=== PATIENT | female | born 1955 | race African-American/Black ===

== ENCOUNTER 2016-12-19 00:04 | Emergency (ER) | payer OTHER ==
[~2016-12-19] VITALS: Ht 162.6 cm; Wt 103.1 kg
[2016-12-19 00:10] VITALS: TEMP 36.7; Ht 162.6 cm; Wt 103.1 kg
[2016-12-19] MEDS ORDERED: SODIUM CHLORIDE 0.9% 1000ML 1,000 ML IV STA (00:10)
[2016-12-19] MEDS ORDERED: LORAZEPAM 2 MG/ML 1 ML VIAL IV STA (00:10)
[2016-12-19] MEDS ORDERED: LABETALOL HCL IV 5 MG/ML 20ML IV STA ×2 (00:10→01:06)
--- NOTE | 2016-12-19 00:16 | EMERGENCY ROOM VISIT NOTE ---
History Report prepared by Baron: Joelle Richardson Under the Supervision of: Dr. Patricio Marie M.D. First contact with patient: 00:06 Stated Complaint: UNABLE TO WALK History of Present Illness The patient is a 61 year old female who presents to the Emergency Room with complaints of persistent dizziness that began prior to arrival. The patient's son states that the patient has a history of diabetes noting that she takes Metformin. He denies the patient being on any insulin. The patient states that she became dizzy this evening and then began vomiting. She states that she fell due to her dizziness. The patient denies any head trauma or headache. She states that she has been feeling weak. The patient's son states that the patient has complained of itchiness to her hands and feet. The patient denies any urinary symptoms or tobacco use. She denies any history of heart disease. Nursing staff notes that the patient recently ran out of her blood pressure medications and states that since she is new to the area she does not have a PCP and has not had her medication refilled. Source of History: patient, family (son), nursing staff Onset: prior to arrival Position: other (global) Quality: other (dizziness) Timing: other (persistent) Associated Symptoms: + vomiting, + weakness, No headache, No urinary symptoms Note: Associated Symptoms: itchiness to hands and feet Review of Systems See HPI for pertinent positives & negatives. A total of 10 systems reviewed and were otherwise negative. Past Medical & Surgical Medical Problems: (1) Diabetes (2) Hypertension Family History No pertinent family history stated. Social History Marital Status: Housing Status: lives with family Occupation Status: unemployed Current/Historical Medications Scheduled Diltiazem Hcl Coated Beads (Cardizem Cd), 1 CAP PO DAILY Metformin Hcl (Glucophage), 1,500 MG PO DAILY [Unknown B/P Med], 1 TAB PO DAILY [Unknown Diabetic Med], 1 TAB PO DAILY Scheduled PRN Meclizine HCl (Meclizine HCl), 1 TAB PO TID PRN for Dizziness or Vertigo Allergies Coded Allergies: No Known Allergies (Unverified , 12/19/16) Physical Exam Vital Signs Date Time Temp Pulse Resp B/P (MAP) Pulse Ox O2 Delivery O2 Flow Rate FiO2 12/19/16 01:23 76 20 165/83 96 Room Air 12/19/16 01:19 74 16 215/96 98 Room Air 12/19/16 01:09 77 17 96 12/19/16 01:07 185/96 12/19/16 00:49 79 16 98 12/19/16 00:47 167/77 12/19/16 00:29 81 20 205/79 96 Room Air 12/19/16 00:10 36.7 77 16 226/91 96 Room Air Physical Exam GENERAL: Patient is anxious appearing and in no acute distress. HEENT: No acute trauma, normocephalic atraumatic, mucous membranes moist, no nasal congestion, no scleral icterus. NECK: No stridor, no adenopathy, no meningismus, trachea is midline. LUNGS: No dyspnea. Clear to auscultation and equal bilaterally. No wheeze, no rhonchi. HEART: Regular rate and rhythm. No murmurs, rubs, gallops appreciated. ABDOMEN: Soft, nontender, bowel sounds positive, no masses appreciated, no peritonitis. BACK: No midline tenderness, no CVA tenderness EXTREMITIES: Normal motion all extremities, no cyanosis, no edema. NEUROLOGIC: Alert and oriented, no acute motor or sensory deficits, no focal weakness, cranial nerves grossly intact. SKIN: No rash, no jaundice, no diaphoresis. Medical Decision & Procedures ER Provider Diagnostic Interpretation: X ray results are stated below per my interpretation: Chest: 1 view: No infiltrate, no effusion, normal cardiac border. Radiology results and stated below per my review and radiologist interpretation: CT HEAD: NO ICH, mass effect or edema. No evidence of acute cortical stroke. Visualized sinuses and mastoid air cells are clear. Radiologist: Roxane Chavez MD Study ready at 0104 and initial results transmitted at 0124 Laboratory Results 12/19/16 00:15 Red Blood Count 5.27, Mean Corpuscular Volume 73.6, Mean Corpuscular Hemoglobin 24.9, Mean Corpuscular Hemoglobin Concent 33.8, Mean Platelet Volume 10.6, Neutrophils (%) (Auto) 51.1, Lymphocytes (%) (Auto) 38.3, Monocytes (%) (Auto) 8.4, Eosinophils (%) (Auto) 1.6, Basophils (%) (Auto) 0.4, Neutrophils # (Auto) 4.14, Lymphocytes # (Auto) 3.11, Monocytes # (Auto) 0.68, Eosinophils # (Auto) 0.13, Basophils # (Auto) 0.03 12/19/16 00:15 Test 12/19/16 00:15 White Blood Count 8.11 K/uL (4.8-10.8) Red Blood Count 5.27 M/uL (4.2-5.4) Hemoglobin 13.1 g/dL (12.0-16.0) Hematocrit 38.8 % (37-47) Mean Corpuscular Volume 73.6 fL (80-100) Mean Corpuscular Hemoglobin 24.9 pg (25-34) Mean Corpuscular Hemoglobin Concent 33.8 g/dl (32-36) Platelet Count 280 K/uL (130-400) Mean Platelet Volume 10.6 fL (7.4-10.4) Neutrophils (%) (Auto) 51.1 % Lymphocytes (%) (Auto) 38.3 % Monocytes (%) (Auto) 8.4 % Eosinophils (%) (Auto) 1.6 % Basophils (%) (Auto) 0.4 % Neutrophils # (Auto) 4.14 K/uL (1.4-6.5) Lymphocytes # (Auto) 3.11 K/uL (1.2-3.4) Monocytes # (Auto) 0.68 K/uL (0.11-0.59) Eosinophils # (Auto) 0.13 K/uL (0-0.5) Basophils # (Auto) 0.03 K/uL (0-0.2) RDW Standard Deviation 37.2 fL (36.4-46.3) RDW Coefficient of Variation 13.9 % (11.5-14.5) Immature Granulocyte % (Auto) 0.2 % Immature Granulocyte # (Auto) 0.02 K/uL (0.00-0.02) Red Blood Cell Morphology Unremarkable Prothrombin Time 10.5 SECONDS (9.0-12.0) Prothromb Time International Ratio 1.0 (0.9-1.1) Activated Partial Thromboplast Time 22.9 SECONDS (21.0-31.0) Partial Thromboplastin Ratio 0.9 Anion Gap 5.0 mmol/L (3-11) Est Creatinine Clear Calc Drug Dose 78.6 ml/min Estimated GFR () 81.6 Estimated GFR (Non- 70.4 BUN/Creatinine Ratio 19.8 (10-20) Calcium Level 9.3 mg/dl (8.5-10.1) Phosphorus Level 2.8 mg/dl (2.5-4.9) Magnesium Level 1.9 mg/dl (1.8-2.4) Total Bilirubin 0.2 mg/dl (0.2-1) Direct Bilirubin < 0.1 mg/dl (0-0.2) Aspartate Amino Transf (AST/SGOT) 10 U/L (15-37) Alanine Aminotransferase (ALT/SGPT) 18 U/L (12-78) Alkaline Phosphatase 91 U/L (45-117) Total Creatine Kinase 85 U/L (26-192) Creatine Kinase MB 0.6 ng/ml (0.5-3.6) Creatine Kinase MB Ratio 0.7 (0-3.0) Troponin I < 0.015 ng/ml (0-0.045) Total Protein 8.3 gm/dl (6.4-8.2) Albumin 3.6 gm/dl (3.4-5.0) Lipase 245 U/L (73-393) Laboratory results as reviewed by me. Medications Administered Medications (Trade) Dose Ordered Sig/Haley Route Start Time Stop Time Status Last Admin Dose Admin Labetalol HCl (Normodyne IV) 10 mg NOW STAT IV 12/19/16 00:10 12/19/16 00:11 DC 12/19/16 00:27 10 MG Lorazepam (Ativan Inj) 1 mg NOW STAT IV 12/19/16 00:10 12/19/16 00:11 DC 12/19/16 00:25 1 MG Sodium Chloride 1,000 ml @ 999 mls/hr Q1H1M STAT IV 12/19/16 00:10 12/19/16 01:10 DC 12/19/16 00:25 999 MLS/HR Labetalol HCl (Normodyne IV) 10 mg NOW STAT IV 12/19/16 01:06 12/19/16 01:07 DC 12/19/16 01:18 10 MG ECG Indication: other (dizziness) Rate (beats per minute): 74 Rhythm: sinus rhythm Findings: nonspecific-ST abn (Anterior), no acute ischemic change, no ectopy Comparison ECG Date: no prior available ED Course 0007: The patient was evaluated in room B12B. A complete history and physical exam was performed. 0010: Ordered Sodium Chloride 1000 ml @ 999 mls/hr IV, Ativan Inj 1 mg IV, Labetalol HCl 10 mg IV. 0106: Ordered Labetalol HCl 10 mg IV. 0143: I reevaluated the patient and she is resting comfortably. She states that she does not have a primary care physician. I discussed the exam findings with her and I discussed the treatment plan. She verbalized complete understanding and agreement. She is ready to go home. 0147: Case Management is going to touch base with the patient regarding setting the patient up with a PCP. 0149: Ordered Diltazem HCl 120 mg PO. Medical Decision Differential: Sepsis, Infectious (UTI/Pneumonia/Meningitis/etc), Metabolic/ Electrolyte Abnormality, Cardiac, Hepatic, Endocrine, Toxicologic, Neurologic, amongst other pathologies entertained. Medication Reconciliation: I attest that I have personally reviewed the patient 's current medication list. Blood pressure screening: Patient was found to have an elevated blood pressure and was referred to their primary doctor for recheck and further treatment. 61 yr old female from [place] of town arrives with acute dizziness and generalized weakness. Completely resolved with getting BP under control and calming her down some. No neuro defictis and CT head is negative. Labs unremarkable and patient without chest pain. No evidence of PE nor dissection. No evidence of acute infectious cause. She does not exhibit evidence of meningitis. EKG is not consistent with ACS and Trop is negative. She feels much better and wishes to go home. She has no idea what blood pressure med she previous was on but clearly has not had it in some time. BP under control with two doses of Labetalol IV. HR in 70s thus will start Cardizem at lower end dose. Given enough in Rx for month as unsure when she may head home to [place]. The patient is well hydrated, happy, breathing comfortably and in no distress. She is not septic and is stable at discharge. Son and her happy with this plan. Impression Primary Impression: Vertigo Additional Impressions: Hypertension Diabetes Scribe Attestation The scribe's documentation has been prepared under my direction and personally reviewed by me in its entirety. I confirm that the note above accurately reflects all work, treatment, procedures, and medical decision making performed by me. Departure Information Dispostion Home / Self-Care Prescriptions Meclizine HCl (Meclizine HCl) 25 Mg Tab 1 TAB PO TID Y for Dizziness or Vertigo, #30 TAB Prov: Patricio Marie M.D. 12/19/16 Diltiazem Hcl Coated Beads (CARDIZEM CD) 180 Mg Cap 1 CAP PO DAILY for 30 Days, #30 CAP 1 Refill Prov: Patricio Marie M.D. 12/19/16 Forms HOME CARE DOCUMENTATION FORM, IMPORTANT VISIT INFORMATION Patient Instructions ED BPV Vertigo, My [facility] Additional Instructions You have been examined and treated today on an emergency basis only. This is not a substitute for, or an effort to provide, complete comprehensive medical care. It is impossible to recognize and treat all injuries or illnesses in a single emergency department visit. It is therefore important that you follow up closely with your Primary Physician. Call as soon as possible for an appointment so you can review all labs, imaging and other testing that you had. Return to Emergency Department, call 911 or seek immediate medical attention if you feel your symptoms are worsening. Your blood pressure was elevated during this visit. Due to how high it was we will begin treatment. Elevated Blood Pressure is quite common in many people who are in the Emergency Department for many reasons. However, it is important that you have your Primary Care Provider recheck your blood pressure and discuss whether treatment will be needed. 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 If you develop severe headaches, chest pain, weakness in arms or legs, or other concerning symptoms call 911. Problem Qualifiers
[2016-12-19 00:26] LABS: BASO % 0.4 %; BASO ABS # 0.03 K/uL (0-0.2); EOS % 1.6 %; HEMATOCRIT 38.8 % (37-47); IG% 0.2 %; LYMPH % 38.3 %; LYMPH ABS # 3.11 K/uL (1.2-3.4); MEAN CELL VOLUME 73.6 fL (80-100); MEAN CORPUSCULAR HEMOGLOBIN 24.9 pg (25-34); MEAN CORPUSCULAR HGB CONC 33.8 g/dl (32-36); MEAN PLATELET VOLUME 10.6 fL (7.4-10.4); MONO % 8.4 %; NEUT % 51.1 %; PLATELET COUNT 280 K/uL (130-400); RED BLOOD COUNT 5.27 M/uL (4.2-5.4); WHITE BLOOD COUNT 8.11 K/uL (4.8-10.8)
[2016-12-19 00:37] LABS: PARTIAL THROMBOPLASTIN RATIO 0.9; PROTHROMBIN TIME (PATIENT) 10.5 SECONDS (9.0-12.0)
[2016-12-19 00:46] LABS: COMPLETE YES
[2016-12-19 00:51] LABS: ALT/SGPT 18 U/L (12-78); BLOOD UREA NITROGEN 18 mg/dl (7-18); BUN/CREATININE RATIO 19.8 (10-20); CALCIUM 9.3 mg/dl (8.5-10.1); CARBON DIOXIDE 33 mmol/L (21-32); CHLORIDE 98 mmol/L (98-107); CREATININE 0.89 mg/dl (0.60-1.20); GLUCOSE 295 mg/dl (70-99); MAGNESIUM 1.9 mg/dl (1.8-2.4); POTASSIUM 3.7 mmol/L (3.5-5.1); SODIUM 136 mmol/L (136-145)
[2016-12-19 00:54] LABS: ALKALINE PHOSPHATASE 91 U/L (45-117); AST/SGOT 10 U/L (15-37); CKMB/CK RATIO 0.7 (0-3.0); PHOSPHORUS 2.8 mg/dl (2.5-4.9)
[2016-12-19] MEDS ORDERED: METF-384 PO (01:11)
[2016-12-19] MEDS ORDERED: UNKNOWN B/P MED PO (01:12)
[2016-12-19] MEDS ORDERED: UNKNOWN DIABETIC MED PO (01:14)
[2016-12-19 01:23] VITALS: BP 165/83; PULSE 76; O2SAT 96
[2016-12-19] MEDS ORDERED: CRDCD/180 PO (01:49)
[2016-12-19] MEDS ORDERED: ANT25 PO (01:49)
[2016-12-19] MEDS ORDERED: DILTIAZEM HCL 120 MG CAPCR PO STA (01:49)
--- NOTE | 2016-12-19 06:47 | DIAGNOSTIC IMAGING REPORT ---
HEAD CT NONCONTRAST CT DOSE: 614.27 mGy.cm HISTORY: Generalized Weakness TECHNIQUE: Multiaxial CT images of the head were performed without the use of intravenous contrast. Comparison: None. Findings: The paranasal sinuses and mastoid air cells are clear. The calvarium and skull base are intact. The ventricles and sulci are within normal limits. There is no mass, hematoma, midline shift, or acute infarct. Impression: No acute intracranial abnormality. Electronically signed by: Robert Lovett M.D. 12/19/2016 6:46 AM Dictated Date/Time: 12/19/2016 6:45 AM
--- NOTE | 2016-12-19 07:23 | DIAGNOSTIC IMAGING REPORT ---
SINGLE VIEW CHEST CLINICAL HISTORY: Generalized weakness. FINDINGS: An AP, portable, upright chest radiograph is obtained. No prior studies are available for comparison at the time of dictation. The examination is degraded by portable technique and patient rotation. The heart is mildly enlarged and there is atherosclerotic calcification of the thoracic aorta. The pulmonary vasculature is noncongested. The lungs and pleural spaces are clear. No pneumothorax is seen. The skeletal structures are osteopenic. The bony thorax is grossly intact. IMPRESSION: Mild cardiomegaly with no acute cardiopulmonary abnormality. Electronically signed by: Paul Louie M.D. 12/19/2016 7:21 AM Dictated Date/Time: 12/19/2016 7:21 AM
== END 2016-12-19 02:14 | disposition home or self-care (01) ==
LOC: EDBD 00:04 → C.EDB 00:06
DX: R42 Dizziness and giddiness (principal); I10 Essential (primary) hypertension; E11.9 Type 2 diabetes mellitus without complications; Z79.84 Long term (current) use of oral hypoglycemic drugs